=== PATIENT | female | born 1975 | race Caucasian/White ===

== ENCOUNTER → 2022-08-22 08:20 | Outpatient (BNVA) | payer OTHER, SELFPAY | PROVIDERS: Visit Provider Podiatrist Foot & Ankle Surgery | DX: M21.611 Bunion of right foot (principal); M21.612 Bunion of left foot; M21.621 Bunionette of right foot; M21.622 Bunionette of left foot; M19.072 Primary osteoarthritis, left ankle and foot; M19.071 Primary osteoarthritis, right ankle and foot; L84 Corns and callosities | CPT/HCPCS: 73630 ==

== ENCOUNTER 2023-09-17 14:53 | Emergency (ER) | payer OTHER, SELFPAY ==
[2023-09-17 15:13] VITALS: BP 169/104; PULSE 69; RESP 16; TEMP 36.8; O2SAT 100
--- NOTE | 2023-09-17 15:47 | XRR_ITS ---
PROCEDURE INFORMATION: Exam: XR Chest Exam date and time: 09/17/2023 4:18 PM Age: 48 years old Clinical indication: Other: Dizziness; Additional info: Weakness TECHNIQUE: Imaging protocol: Radiologic exam of the chest. Views: 1 view. COMPARISON: No relevant prior studies available. FINDINGS: Lungs: Unremarkable. No consolidation. Pleural spaces: Unremarkable. No pleural effusion. No pneumothorax. Heart/Mediastinum: Unremarkable. No cardiomegaly. Bones/joints: Unremarkable. XR/XR chest 1V portable [id number] IMPRESSION: No acute findings.
[2023-09-17 16:15] LABS: Basophils # 0.1 10^3/uL (0.0-0.1); Basophils % 0.8 %; Eosinophils # 0.3 10^3/uL (0.0-0.8); Hematocrit 46.9 % (36-47); Lymphocytes # 2.4 10^3/uL (0.8-4.8); Lymphocytes % 26.3 %; Mean Corpuscular HGB Conc 31.8 g/dL (30-55); Mean Corpuscular Hemoglobin 30.5 pg (27-33); Mean Corpuscular Volume 96.1 fl (85-98); Monocytes # 0.8 10^3/uL (0.2-0.9); Monocytes % 8.5 %; Neutrophils # 5.67 10^3/uL (1.8-7.7); Neutrophils % 61.2 %; Nucleated Red Blood Cells % 0 %; Platelet Count 348 10^3/cmm (157-399); Red Blood Count 4.88 10^6/uL (3.85-5.65); Red Cell Distribution Width 14.4 % (12.1-15.1); White Blood Count 9.27 10^3/uL (3.29-11.43)
[2023-09-17 16:39] LABS: Alanine Aminotransferase 20 U/L (0-33); Albumin Level 4.3 g/dL (3.5-5.2); Alkaline Phosphatase 62 U/L (35-105); Anion Gap 17.6 (5-19); Aspartate Amino Transferase 18 U/L (0-32); Blood Urea Nitrogen 15 mg/dL (6-20); Calcium 9.3 mg/dL (8.5-10.5); Carbon Dioxide 21 mmol/L (22-29); Chloride 101 mmol/L (98-107); Creatinine Clr Calc Pharmacy 95.5947; Globulin 3.1 g/dL (1.3-4.6); Glomerular Filtration Rate 75.9 mL/min (90-130); Glucose 114 mg/dL (65-115); Lipase 26 U/L (13-60); Osmolality Calculated 284 mOsm/kg (285-295); Potassium 3.6 mmol/L (3.5-5.1); Sodium 136 mmol/L (136-145); Total Bilirubin 0.2 mg/dL (0.15-1.2); Total Protein 7.4 g/dL (6.6-8.7)
--- NOTE | 2023-09-17 18:10 | ECG_ITS ---
[facility] Test Date: 2023-09-17 Pat Name: Jacek Avila Department: Room: Gender: Female Financial Consultant: : 1975 Requested By: Robinson Carter Order Number: [id number] Vanessa MD: Matthew Lopez M.D. Measurements Intervals [place] Rate: 64 P: 23 IN: 187 QRS: 65 QRSD: 97 T: 16 QT: 434 QTc: 450 Interpretive Statements SINUS RHYTHM LOW QRS VOLTAGE IN PRECORDIAL LEADS [QRS DEFLECTION < 1.0 mV IN CHEST LEADS] POSSIBLE ANTERIOR MYOCARDIAL INFARCTION , OF INDETERMINATE AGE [30 ms Q WAVE IN V3/V4, OR R < 0.2 mV IN V4] INFERIOR MYOCARDIAL INFARCTION , OF INDETERMINATE AGE [40+ ms Q WAVE AND/OR ST/T ABNORMALITY IN II/aVF] No previous ECG available for comparison Electronically Signed On 09-18-2023 0:40:07 CDT by Matthew Lopez M.D. [id number]
--- NOTE | 2023-09-17 18:29 | CTR_ITS ---
PROCEDURE INFORMATION: Exam: CT Head Without Contrast Exam date and time: 09/17/2023 6:34 PM Age: 48 years old Clinical indication: Altered mental status/memory loss and dizziness; Patient HX: Patient says she has felt dizzy and a bit confused over the past couple weeks- and her wanted her checked out. ; Additional info: Cognitive slowing TECHNIQUE: Imaging protocol: Computed tomography of the head without contrast. Radiation optimization: All CT scans at this facility use at least one of these dose optimization techniques: automated exposure control; mA and/or kV adjustment per patient size (includes targeted exams where dose is matched to clinical indication); or iterative reconstruction. COMPARISON: No relevant prior studies available. RADIATION DOSE METRICS: Total DLP (mGy-cm): 1042 FINDINGS: Brain: No evidence of intra-axial or extra-axial hemorrhage. No mass effect or midline shift. Puga-white differentiation is maintained. Basilar cisterns are patent. Cerebral ventricles: No hydrocephalus. Paranasal sinuses: The visualized paranasal sinuses are well aerated. Mastoid air cells: The visualized mastoids and middle ears are clear. Bones: Unremarkable. No acute fracture. Soft tissues: No gross soft tissue abnormality. CT/CT head wo con* [id number] IMPRESSION: 1. No acute intracranial abnormality.
--- NOTE | 2023-09-17 18:29 | ED_ITS ---
HPI - General Adult 2 General: Chief complaint: General Medical Stated complaint: AMS Time Seen by Provider: 09/17/23 18:11 Source: patient and family Mode of arrival: ambulatory Limitations: no limitations History of Present Illness: Patient is a 48-year-old female who presents to ED today along with her for evaluation of progressively worsening cognitive slowing. Patient states she first began noticing several weeks ago stating that the air conditioner was out at her work and she initially thought it was secondary to the heat. She states she had an episode where she felt out of it and slightly confused. She feels like symptoms have seemed to come and go since then but overall she feels like they are progressively worsening. She is describing symptoms of forgetfulness stating that she forgot to turn off the stove the other day. She cites another incident of coming inside to put something in the fridge and then instead stared at the fridge. Several other similar scenarios reported. Reporting difficulty with expressing thoughts. Patient denies any acute neurologic deficits. She is not on any prescription medications. She states she does take several supplements. She is not having pain anywhere. Blood pressure was initially elevated upon arrival. At time of exam her blood pressure is 150s/90s. She does not complain of a headache. No visual changes. Onset (ago): week(s) Relieving factors: none Exacerbating factors: none Associated symptoms: Reports confusion; Deny chest pain, dyspnea, headache(s), malaise, nausea, rash, palpitations, syncope or vomiting Treatments prior to arrival: none Review of Systems 2 Const: Denies: fever(s), chills, body aches, fatigue or malaise Eyes: Denies: change in vision or blurry vision Card: Denies: chest pain, palpitations, irregular heart rhythm, lightheadedness, syncope or dyspnea on exertion Resp: Denies: dyspnea, productive cough or pain on inspiration GI: Denies: abdominal pain, nausea, vomiting, heartburn or diarrhea : Denies: dysuria Musc: Denies: neck pain, back pain or joint pain Skin/Breast: Denies: rash Neuro: Reports: confusion and difficulty communicating thoughts; Denies: headache(s), numbness in extremities, weakness in extremities, sensory changes, difficulty walking, dizziness, Slurred speech present, seizure-like activity or involuntary movements Physical Exam 2 Const: COMMON NORMALS: no acute distress, average body habitus, patient oriented x3, no limitations, healthy appearing, alert and well nourished HENMT: COMMON NORMALS: normocephalic and atraumatic HEAD & SCALP: normal to inspection, normocephalic and atraumatic Eye: COMMON NORMALS: no scleral icterus Neck/C-Spine: COMMON NORMALS: no lymphadenopathy and no meningeal signs G ENERAL: Yes normal visual inspection Resp: COMMON NORMALS: normal respiratory effort and clear to auscultation bilaterally AUSCULTATION: clear to auscultation bilaterally Cardio: COMMON NORMALS: regular rate and regular rhythm RATE: regular rate RHYTHM: regular rhythm Extremity: GENERAL: Yes normal exam except as noted Neuro: [place] COMA SCALE: document GCS findings [place] coma scale eye opening: Spontaneous [place] coma scale verbal response: Orientated [place] coma scale motor response: Obey commands Wolfgang coma scale total score: 15 COMMON NORMALS: patient oriented x3, CN's II-XII intact bilaterally, moves all extremities, no focal motor deficits, no sensory deficits noted and gait normal SENSORIUM/ORIENTATION: Yes alert MENINGEAL SIGNS: Yes no meningeal signs CRANIAL NERVES: Yes CN normal except as noted Psych: COMMON NORMALS: mental status grossly normal Skin: COMMON NORMALS: no rashes or lesions noted GENERAL SKIN EXAM: no rashes or lesions noted Course 2 Vital Signs: Vital signs: Vital Signs Temperature 98.3 F 09/17/23 15:13 Pulse Rate 67 09/17/23 19:28 Respiratory Rate 16 09/17/23 19:28 Blood Pressure 130/85 09/17/23 19:28 Pulse Oximetry 96 09/17/23 19:28 Oxygen Delivery Me thod Room Air 09/17/23 19:28 [facility] - General Adult Medical Decision Making Patient has no acute neurologic deficits. She has no complaints of a headache. No visual changes. Symptoms do not seem consistent with any type of reversible encephalopathy syndromes. At time of reexamination blood pressure is now 130s/80s. Her workup here is benign. Head CT is normal. Recommend she follow- up with her primary care provider for further evaluation. Spoke about possible referral to neurology if needed. Lab Data I reviewed the patient's lab results. 09/17/23 16:08 09/17/23 16:08 Radiology Impressions Chest X-Ray 09/17/23 15:47 IMPRESSION: No acute findings. Head CT 09/17/23 18:29 IMPRESSION: 1. No acute intracranial abnormality. Laboratory Results WBC 9.27 10^3/uL (3.29-11.43) 09/17/23 16:08 RBC 4.88 10^6/uL (3.85-5.65) 09/17/23 16:08 Hgb 14.90 g/dL (11.27-16.99) 09/17/23 16:08 Hct 46.9 % (36-47) 09/17/23 16:08 MCV 96.1 fl (85-98) 09/17/23 16:08 MCH 30.5 pg (27-33) 09/17/23 16:08 MCHC 31.8 g/dL (30-55) 09/17/23 16:08 RDW 14.4 % (12.1-15.1) 09/17/23 16:08 Plt Count 348 10^3/cmm (157-399) 09/17/23 16:08 MPV 9.0 fL (7.4-10.4) 09/17/23 16:08 Neut % (Auto) 61.2 % 09/17/23 16:08 Lymph % (Auto) 26.3 % 09/17/23 16:08 [place]att % (Auto) 8.5 % 09/17/23 16:08 Eos % (Auto) 3.0 % 09/17/23 16:08 Baso % (Auto) 0.8 % 09/17/23 16:08 Neut # (Auto) 5.67 10^3/uL (1.8-7.7) 09/17/23 16:08 Lymph # (Auto) 2.4 10^3/uL (0.8-4.8) 09/17/23 16:08 Pratt # (Auto) 0.8 10^3/uL (0.2-0.9) 09/17/23 16:08 Eos # (Auto) 0.3 10^3/uL (0.0-0.8) 09/17/23 16:08 Baso # (Auto) 0.1 10^3/uL (0.0-0.1) 09/17/23 16:08 Nucleated RBC % (auto) 0 % 09/17/23 16:08 Nucleated RBCs # 0.0 /100WBC 09/17/23 16:08 Sodium 136 mmol/L (136-145) 09/17/23 16:08 Potassium 3.6 mmol/L (3.5-5.1) 09/17/23 16:08 Chloride 101 mmol/L (98-107) 09/17/23 16:08 Carbon Dioxide 21 mmol/L (22-29) L 09/17/23 16:08 Anion Gap 17.6 (5-19) 09/17/23 16:08 BUN 15 mg/dL (6-20) 09/17/23 16:08 Creatinine 0.8 mg/dL (0.5-0.9) 09/17/23 16:08 GFR Calculation 75.9 mL/min (90-130) L 09/17/23 16:08 Glucose 114 mg/dL (65-115) 09/17/23 16:08 Calculated Osmolality 284 mOsm/kg (285-295) L 09/17/23 16:08 Calcium 9.3 mg/dL (8.5-10.5) 09/17/23 16:08 Total Bilirubin 0.2 mg/dL (0.15-1.2) 09/17/23 16:08 AST 18 U/L (0-32) 09/17/23 16:08 ALT 20 U/L (0-33) 09/17/23 16:08 Alkaline Phosphatase 62 U/L (35-105) 09/17/23 16:08 Total Protein 7.4 g/dL (6.6-8.7) 09/17/23 16:08 Albumin 4.3 g/dL (3.5-5.2) 09/17/23 16:08 Globulin 3.1 g/dL (1.3-4.6) 09/17/23 16:08 Lipase 26 U/L (13-60) 09/17/23 16:08 Urine Color Yellow (Yellow) 09/17/23 19:03 Urine Appearance Clear (CLEAR) 09/17/23 19:03 Urine pH 6 (5-7) 09/17/23 19:03 Ur Specific [place] 1.015 (1.005-1.030) 09/17/23 19:03 Urine Protein Neg (Negative) 09/17/23 19:03 Urine Glucose (UA) Norm (Normal) 09/17/23 19:03 Urine Ketones 1+ (Negative) H 09/17/23 19:03 Urine Blood Neg (Negative) 09/17/23 19:03 Urine Nitrate Negative (Negative) 09/17/23 19:03 Urine Bilirubin Neg (Negative) 09/17/23 19:03 Urine Urobilinogen Norm mg/dL (Negative) 09/17/23 19:03 Ur Leukocyte Esterase Negative (Negative) 09/17/23 19:03 All radiology interpretation(s) finalized by discharge Discharge Plan Discharge Patient Disposition: Home Clinical Impression: Cognitive complaints Condition: Stable Prescriptions: No Action No Known Home Medications Discharge Orders: Discharge ED (Routine); Ordered 09/17/23 Ordered By: Melissa De La Garza Referrals: Mary Collado FNP [Primary Care Provider] - Coding Level of Care Code ED Vascular Ultrasound Technician for Chuck Coleman
[2023-09-17 19:10] LABS: Add Urine Microscopic? NO; Charge for UA Resulting for Rev
[2023-09-17 19:20] LABS: Bilirubin Urine Neg (Negative); Blood Urine Neg (Negative); Glucose Urine UA Norm (Normal); Ketones Urine 1+ (Negative); Leukocyte Esterase Urine Negative (Negative); Nitrate Urine Negative (Negative); Protein Urine Neg (Negative); Specific Gravity, Urine 1.015 (1.005-1.030); Urine Appearance Clear (CLEAR); Urine Color Yellow (Yellow); Urobilinogen Urine Norm (Negative); pH Urine 6 (5-7)
[2023-09-17 19:28] VITALS: BP 130/85; PULSE 67; RESP 16; O2SAT 96
[2023-09-17 20:29] VITALS: BP 131/81; PULSE 61; RESP 16; TEMP 36.8; O2SAT 97
== END 2023-09-17 20:30 | disposition home or self-care (01) ==
PROVIDERS: Emergency Medicine; Emergency Provider Physician Assistant; PCP Nurse Practitioner Family
DX: R41.82 Altered mental status, unspecified (principal)
CPT/HCPCS: 36415; 70450; 71045; 80053; 81003; 83690; 85025; 93005; 99285